=== PATIENT | male | born 1960 | race Caucasian/White ===

== ENCOUNTER 2019-05-03 11:15 | Emergency (ER) | payer OTHER | END 2019-05-03 12:10 | disposition home or self-care (01) | LOC: MADERS 11:15 | DX: R05 Cough (principal); R09.81 Nasal congestion; R50.9 Fever, unspecified; I10 Essential (primary) hypertension; E78.5 Hyperlipidemia, unspecified; Z79.899 Other long term (current) drug therapy | CPT/HCPCS: 71046 ==